=== PATIENT | female | born 1940 | race Caucasian/White ===

== ENCOUNTER 2018-05-04 11:40 | Outpatient (CLI) | payer MEDICARE, BC ==
[2018-05-04] VITALS (17 sets, daily range): BP systolic 88–141; BP diastolic 62–78
== END 2018-05-04 23:59 | disposition home or self-care (01) ==
LOC: CARD DIAG 11:40
PROVIDERS: ATTEND Internal Medicine Interventional Cardiology
DX: R55 Syncope and collapse (principal)
CPT/HCPCS: 93660